=== PATIENT | female | born 1995 | race Caucasian/White ===

== ENCOUNTER 2024-01-28 23:39 | Emergency (ER) | payer OTHER ==
[2024-01-28 23:47] VITALS: BMI 33.2
[2024-01-29] MEDS ORDERED: ACETAMINOPHEN 325 MG TABLET (FP) ONE (01:00)
[2024-01-29] MEDS: ACETAMINOPHEN 500 MG TABLET (FP) PO ONE (01:02)
[2024-01-29 02:17] VITALS: BP 106/65; PULSE 74; RESP 17; TEMP 97.9
== END 2024-01-29 02:08 | disposition home or self-care (01) ==
LOC: JER 23:39
DX: O99.891 Other specified diseases and conditions complicating pregnancy (principal); R51.9 Headache, unspecified; R07.9 Chest pain, unspecified; Z3A.37 37 weeks gestation of pregnancy
CPT/HCPCS: 93005; 93010; 99283-25